=== PATIENT | male | born 1970 | race Caucasian/White ===

== ENCOUNTER 2017-04-23 11:37 | Emergency (ER) | payer SELFPAY ==
[~2017-04-23] VITALS: Ht 172.7 cm; Wt 96.0 kg
[~2017-04-23 11:37] MED LIST: HYDROCODONE PO
[2017-04-23 11:41] VITALS: BP 155/84; PULSE 82; RESP 15; TEMP 99.1; O2SAT 98
[2017-04-23] MEDS ORDERED: AMOX875T PO (11:58)
--- NOTE | 2017-04-23 11:59 | PD ---
HPI Chief Complaint: ENT Complaint Time Seen by Provider: 11:51 Travel History International Travel<30 days: No Contact w/Intl Traveler<30days: No Traveled to known affect area: No History of Present Illness HPI Patient is a 46-year-old male presenting to emergency department for evaluation of right ear pain. Patient states it started a week ago, feels pressure-like and throbbing. He denies any fever, chills, nausea, vomiting, headache. He states occasionally he feels dizzy. 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 He denies any significant past medical history. [facility] Past Medical History Medical History: Denies Significant Hx Diminished Hearing: No Past Surgical History Gynecologic Surgery: Yes Tonsillectomy: Yes Other Surgery: Yes (vasectomy) Social History Alcohol Use: No Tobacco Use: Yes (1ppd) Substance Use: No Allergies-Medications (Allergen,Severity, Reaction): Coded Allergies: No Known Allergies (Verified , 03/08/10) Reported Meds & Prescriptions Reported Meds & Active Scripts Active Reported [Hydrocodone] 10 Mg PO DIRECTED Review of Systems Except as stated in HPI: all other systems reviewed are Neg HENT: Positive: Earache Physical Exam Narrative GENERAL: Well-developed, well-nourished, alert male. Resting comfortably in no acute distress. SKIN: Warm and dry. HEAD: Normocephalic. EARS: Bilateral pinnae and external canals appear within normal limits. Moderate cerumen impaction noted bilaterally. Cerumen was removed from left ear canal without difficulty, tympanic membrane is without redness, bulging, dullness. Right tympanic membrane is not well visualized, there remains to be a significant amount of cerumen impacted. EYES: No scleral icterus. No injection or drainage. NECK: Supple, trachea midline. No JVD or lymphadenopathy. CARDIOVASCULAR: Regular rate and rhythm without murmurs, gallops, or rubs. RESPIRATORY: Breath sounds equal bilaterally. No accessory muscle use. GASTROINTESTINAL: Abdomen soft, non-tender, nondistended. MUSCULOSKELETAL: No cyanosis, or edema. BACK: Nontender without obvious deformity. No CVA tenderness. Data Data Last Documented VS Vital Signs Date Time Temp Pulse Resp B/P (MAP) Pulse Ox O2 Delivery O2 Flow Rate FiO2 04/23/17 11:41 99.1 82 15 155/84 (107) 98 [facility] Medical Decision Making Medical Screen Exam Complete: Yes Emergency Medical Condition: Yes Interpretation(s) Vital Signs Date Time Temp Pulse Resp B/P (MAP) Pulse Ox O2 Delivery O2 Flow Rate FiO2 04/23/17 11:41 99.1 82 15 155/84 (107) 98 Differential Diagnosis Otitis media versus otitis externa versus cerumen impaction versus other Narrative Course Patient is a 46 year old male presenting with right ear pain. Vital signs are stable, on exam it was noted that he had significant bilateral cerumen impaction. Cerumen was removed with curette, left tympanic membrane was well- visualized with no sign of infection. Right tympanic membrane continued to have significant amount of cerumen. Patient was encouraged to obtain over-the- counter Debrox and use as directed. He will be provided with A prescription for an oral antibiotic. He is encouraged to complete full course of advice as prescribed. He requested a work note, he will be provided with one. He was encouraged to follow up with her primary doctor return to the emergency department for any new or worsening symptoms. Patient verbalized understanding of discharge instructions. Patient is stable for discharge. Diagnosis Primary Impression: Impacted cerumen of both ears Additional Impression: Otitis media Qualified Codes: H66.91 - Otitis media, unspecified, right ear Referrals: [facility] Primary Care Physician Patient Instructions: General Instructions, Serous Otitis Media (ED) Departure Forms: Tests/Procedures, Work Release Enter return to work date: Apr 24, 2017 Additional Instructions: Complete full course of antibiotics as prescribed Follow-up with a primary doctor Return to emergency department for any new or worsening symptoms Obtain [id number] Debrox and use as directed Avoid use of Q-tips in your ear Med/Other Pt SpecificInfo: Prescription(s) given Scripts Amoxicillin (Amoxicillin) 875 Mg Tab 875 MG PO BID for Infection, #20 TAB 0 Refills Prov: Carmel Hilliard 04/23/17 Disposition: 01 DISCHARGE HOME Condition: Stable Carmel Hilliard Apr 23, 2017 11:59
== END 2017-04-23 12:20 | disposition home or self-care (01) ==
LOC: NEPK 11:37
DX: H61.23 Impacted cerumen, bilateral (principal); H66.91 Otitis media, unspecified, right ear; F17.200 Nicotine dependence, unspecified, uncomplicated
CPT/HCPCS: 69210

== ENCOUNTER 2017-08-13 11:47 | Emergency (ER) | payer SELFPAY ==
[~2017-08-13] VITALS: Ht 172.7 cm; Wt 93.0 kg
[~2017-08-13 11:47] MED LIST changes: +AMOX875T PO
[2017-08-13 11:53] VITALS: BP 135/84; PULSE 64; RESP 16; TEMP 98.5; O2SAT 100
--- NOTE | 2017-08-13 12:42 | RADRPT ---
EXAM DATE/TIME: 08/13/2017 12:30 [place] COMPARISON: No previous studies available for comparison. INDICATIONS : 5th digit was slammed in door today, right hand pain. MEDICAL HISTORY : Smoker. SURGICAL HISTORY : None. ENCOUNTER: Initial ACUITY: 1 day PAIN SCORE: 10/10 LOCATION: Right hand, tip of 5th digit. FINDINGS: Three view examination of the right hand demonstrates no soft tissue swelling, dislocation, or fractu re. The carpal bones appear intact. The interphalangeal and metacarpophalangeal joints are intact. Bony mineralization is normal. Special attention is directed to the osseous structures of the fifth digit; no evidence of recent injury. CONCLUSION: 1. Osseous structures of the fifth digit are intact. 2. 2 mm metallic density seen on both views superimposed near the tip of the ulnar styloid may repres ent radiopaque foreign body. Francisco Waldrop MD on August 13, 2017 at 12:39 Board Certified Radiologist. This report was verified electronically.
--- NOTE | 2017-08-13 12:57 | PD ---
HPI Chief Complaint: Musculoskeletal Complaint Time Seen by Provider: 12:55 Travel History International Travel<30 days: No Contact w/Intl Traveler<30days: No Traveled to known affect area: No History of Present Illness HPI 47-year-old male presents to emergency department complaining of right fifth finger pain after accidentally slamming his finger in the door against concrete. States [place] his finger and he is here today to rule out a fracture. States the finger started swelling and became bruised. States his pain is mild to moderate and nonradiating. Complains of numbness to the distal aspect but does have range of motion with significant pain. Denies pain elsewhere on his hand. Patient is right-handed. PFSH Past Medical History Diminished Hearing: No Past Surgical History Gynecologic Surgery: Yes Tonsillectomy: Yes Other Surgery: Yes (vasectomy) Social History Alcohol Use: No Tobacco Use: Yes (1ppd) Substance Use: No Allergies-Medications (Allergen,Severity, Reaction): Coded Allergies: No Known Allergies (Verified , 03/08/10) Reported Meds & Prescriptions Reported Meds & Active Scripts Active Amoxicillin 875 Mg Tab 875 Mg PO BID Reported [Hydrocodone] 10 Mg PO DIRECTED Review of Systems Except as stated in HPI: all other systems reviewed are Neg Physical Exam Narrative GENERAL: Well-nourished, well-developed patient. SKIN: Focused skin assessment warm/dry. HEAD: Normocephalic. EYES: No scleral icterus. No injection or drainage. NECK: Supple, trachea midline. MUSCULOSKELETAL: No cyanosis, or edema. Right little finger-ecchymosis and mild edema present. 2 point discrimination normal. Capillary refill present. Grade 5 out of 5 strength of the finger but with pain. BACK: Nontender without obvious deformity. No CVA tenderness. PSYCHIATRIC: No delusional thought processes. No hallucinations. Data Data Last Documented VS Vital Signs Date Time Temp Pulse Resp B/P (MAP) Pulse Ox O2 Delivery O2 Flow Rate FiO2 08/13/17 11:53 98.5 64 16 135/84 (101) 100 Room Air Orders Orders Hand, Complete ([id number]) (08/13/17 ) Ed Discharge Order (08/13/17 12:57) MDM Medical Decision Making Medical Screen Exam Complete: Yes Emergency Medical Condition: Yes Differential Diagnosis Right little finger contusion, fracture, sprain Narrative Course 47-year-old male presents to emergency department complaining of right fifth finger pain after accidentally slamming his finger in the door against concrete. States he was [place] and accidentally slammed his finger and he is here today to rule out a fracture. States the finger started swelling and became bruised. States his pain is mild to moderate and nonradiating. Complains of numbness to the distal aspect but does have range of motion with significant pain. Denies pain elsewhere on his hand. Patient is right-handed. Vital signs stable Physical exam findings consistent with a right little finger fracture versus contusion. X-rays without acute process. Offered a splint for his finger but patient did not want this. States only his popsicle sticks. Advised to use them for comfort. Advised of the usual course of his injury. Tylenol or Motrin per package instructions. Patient to follow up with a hand specialist if not improved within a couple of days. Follow-up with primary care physician. Return to the emergency for worsening or persistent symptoms. Diagnosis Primary Impression: Contusion Qualified Codes: S60.051A - Contusion of right little finger without damage to nail, initial encounter Referrals: Primary Care Physician Additional Instructions: Use ice or heat for symptom relief. Elevate the joint above the heart to reduce swelling. You may use compression with Ravi wrap or similar to reduce swelling. Here and she may take a couple of weeks to fully resolve. If symptoms persist or worsen, return to the emergency department. Follow up with your primary care physician within 2 days. Disposition: 01 DISCHARGE HOME Condition: Stable Michelle Conley Aug 13, 2017 12:57
== END 2017-08-13 13:57 | disposition home or self-care (01) ==
LOC: NEPK 11:47
DX: S60.051A Contusion of right little finger without damage to nail, initial encounter (principal); F17.200 Nicotine dependence, unspecified, uncomplicated; W22.8XXA Striking against or struck by other objects, initial encounter; Y92.240 Courthouse as the place of occurrence of the external cause
CPT/HCPCS: 73130; 99283

== ENCOUNTER 2018-01-13 14:44 | Emergency (ER) | payer SELFPAY ==
[~2018-01-13] VITALS: Ht 172.7 cm; Wt 95.5 kg
[2018-01-13 14:51] VITALS: BP 147/94; PULSE 76; RESP 16; TEMP 98.8; O2SAT 97
[2018-01-13] MEDS ORDERED: LIDOCAINE HCL 1% 30 ML VIAL INFIL ONE (17:45)
[2018-01-13] MEDS ORDERED: LIDOCAINE HCL 1% PF 30 ML VIAL ONE (17:48)
[2018-01-13] MEDS ORDERED: BACT800T5 PO (18:24)
--- NOTE | 2018-01-13 18:24 | PD ---
HPI Chief Complaint: Skin Problem Time Seen by Provider: 16:43 Travel History International Travel<30 days: No Contact w/Intl Traveler<30days: No Traveled to known affect area: No History of Present Illness HPI 47-year-old male presents to the ED for evaluation of painful, red bump over the left eyebrow. Patient states that he has had a tender bump in the area for some time, redness started over the last few days. He denies attempting to squeeze the area. He denies history of MRSA. Denies headache, dizziness, fever , chills, nausea, vomiting. No treatment attempted at home. PFSH Past Medical History Medical History: Denies Significant Hx Diminished Hearing: No Past Surgical History Surgical History: No Previous Surgery Gynecologic Surgery: Yes Tonsillectomy: Yes Other Surgery: Yes (vasectomy) Social History Alcohol Use: No Tobacco Use: Yes (1ppd) Substance Use: No Allergies-Medications (Allergen,Severity, Reaction): Coded Allergies: No Known Allergies (Verified Adverse Reaction, Unknown, 01/13/18) Reported Meds & Prescriptions Reported Meds & Active Scripts Active Bactrim DS (Sulfamethoxazole-Trimethoprim) 800-160 Mg Tab 1 Tab PO BID Amoxicillin 875 Mg Tab 875 Mg PO BID Review of Systems Except as stated in HPI: all other systems reviewed are Neg Physical Exam Narrative GENERAL: Well-nourished, well-developed white male no acute distress. SKIN: Focused skin assessment warm/dry. SKIN: There is an indurated area above the left eyebrow which measures about 1.5 cm in diameter. It is fluctuant but there is no pointing or drainage. There is a zone of inflammation around it but no lymphangitis. HEAD: Normocephalic. EYES: No scleral icterus. No injection or drainage. NECK: Supple, trachea midline. No JVD or lymphadenopathy. CARDIOVASCULAR: Regular rate and rhythm without murmurs, gallops, or rubs. RESPIRATORY: Breath sounds equal bilaterally. No accessory muscle use. GASTROINTESTINAL: Abdomen soft, non-tender, nondistended. MUSCULOSKELETAL: No cyanosis, or edema. BACK: Nontender without obvious deformity. No CVA tenderness. Data Data Last Documented VS Vital Signs Date Time Temp Pulse Resp B/P (MAP) Pulse Ox O2 Delivery O2 Flow Rate FiO2 01/13/18 14:51 98.8 76 16 147/94 (111) 97 Orders Orders Lidocaine 1% Inj (Xylocaine 1% Inj) (01/13/18 17:45) Abscess Afb Culture And Stain (01/13/18 17:42) Lidocaine Pf 1% Inj (Xylocaine-Mpf 1% In (01/13/18 17:48) Ed Discharge Order (01/13/18 18:24) MDM Medical Decision Making Medical Screen Exam Complete: Yes Emergency Medical Condition: Yes Differential Diagnosis Infected sebaceous cyst versus abscess versus cellulitis versus other Narrative Course 47-year-old male presents to the ED for evaluation of painful, red bump over the left eyebrow. Patient states that he has had a tender bump in the area for some time, redness started over the last few days. He denies attempting to squeeze the area. He denies history of MRSA. Patient afebrile on presentation. Exam consistent with infected sebaceous cyst. Patient requests that I do an I&D. I explained to him that he would need to see a general surgeon for definitive treatment of the cyst. I&D was performed. Please see my procedure note for details. Patient's prescribed Bactrim DS twice daily 7 days. We discussed signs of infection, reasons to return to the ED. He indicated understanding of instructions and is agreeable to care plan. The patient is stable and discharged home. Procedures Procedure Narrative INCISION AND DRAINAGE OF ABSCESS: The area was prepped and was sterilely draped. A subcutaneous wheal of 1 % Xylocaine with a total number 1 mL was used to anesthetize the area properly. A number 11 scalpel was used to make a 0.25 -cm incision across the area of the abscess. The abscess was drained, complex loculations were broken down, and irrigated with normal saline. Cultures were obtained. Sterile dressing applied. Patient tolerated the procedure well. Diagnosis Primary Impression: Infected sebaceous cyst of skin Referrals: General Surgeon Plastic Surgeon Additional Instructions: Keep wound clean, dry and covered. You may allow water to run over the wound but do not submerge her head. Monitor for signs of worsening infection as discussed. Take antibiotics as prescribed. [id number] pain medications as described on the label, as needed for pain. Follow-up with the general surgeon or plastic surgeon for excision of the cyst as discussed. Return to the ED for any urgent or emergent medical condition. Med/Other Pt SpecificInfo: Prescription(s) given Scripts Sulfamethoxazole-Trimethoprim (Bactrim DS) 800-160 Mg Tab 1 TAB PO BID for Infection, #14 TAB 0 Refills Prov: Barrera Brown MD 01/13/18 Disposition: 01 DISCHARGE HOME Condition: Stable Cynthia Nichole January 13, 2018 18:24
== END 2018-01-13 18:33 | disposition home or self-care (01) ==
LOC: NEPA 14:44
DX: L72.3 Sebaceous cyst (principal); L08.9 Local infection of the skin and subcutaneous tissue, unspecified; F17.200 Nicotine dependence, unspecified, uncomplicated
CPT/HCPCS: 10060; 87015; 87116; 87206